=== PATIENT | female | born 1980 | race Caucasian/White ===

== ENCOUNTER 2019-03-02 18:09 | Emergency (ER) | payer OTHER ==
[~2019-03-02] VITALS: Ht 162.6 cm; Wt 69.9 kg
[2019-03-02 18:10] VITALS: BP_SYST 131
[2019-03-02 19:47] LABS: BASOPHILS # (AUTO) 0.1 K/uL (0.0-0.2); BASOPHILS % (AUTO) 0.4 % (0.0-2.0); EOSINOPHILS % (AUTO) 0.1 % (0.0-4.0); HEMATOCRIT 44.2 % (36-48); HEMOGLOBIN 14.7 g/dL (12.0-16.0); LYMPHOCYTES % (AUTO) 15.4 % (20.5-51.5); MEAN CORPUSCULAR HEMOGLOBIN 30 pg (27-31); MEAN CORPUSCULAR HGB CONC 33 % (32-36); MEAN CORPUSCULAR VOLUME 89 fL (79.0-98.0); MONOCYTES # (AUTO) 0.5 K/uL (0.0-1.0); MONOCYTES % (AUTO) 3.8 % (1.7-9.3); NEUTROPHILS # (AUTO) 10.5 K/uL (1.8-7.7); NEUTROPHILS % (AUTO) 80.3 % (40.0-70.0); PLATELET COUNT (AUTO) 293 K/uL (130-430); RED BLOOD CELL COUNT(AUTO) 4.97 MIL/uL (4.2-6.2); WHITE BLOOD COUNT (AUTO) 13.1 K/uL (4.8-10.8)
[2019-03-02 20:17] LABS: BILIRUBIN,URINE 1+ (NEGATIVE); BLOOD, URINE 3+ (NEGATIVE); CLARITY/URINE SL CLOUDY (CLEAR); COLOR,URINE RED (YELLOW); GLUCOSE,URINE NEGATIVE (NEGATIVE); KETONES,URINE 1+ (NEGATIVE); LEUKOCYTE ESTERASE ,URINE NEGATIVE (NEGATIVE); PROTEIN URINE 2+ (NEGATIVE)
[2019-03-02 20:20] LABS: NITRITE, URINE POSITIVE (NEGATIVE)
[2019-03-02 20:31] LABS: BACTERIA,URINE RARE /HPF (None Seen); RBC,URINE >100 /HPF (0-3); WBC,URINE 0-3 /HPF (0-3)
[2019-03-02] MEDS ORDERED: CEPHALEXIN 500 MG CAPSULE PO ONE (21:00)
[2019-03-02 21:10] VITALS: BP_SYST 131
== END 2019-03-02 21:10 | disposition home or self-care (01) ==
LOC: SED 18:09
DX: O20.0 Threatened abortion (principal); O23.41 Unspecified infection of urinary tract in pregnancy, first trimester; R03.0 Elevated blood-pressure reading, without diagnosis of hypertension; Z3A.01 Less than 8 weeks gestation of pregnancy
CPT/HCPCS: 36415; 76801; 76817; 81000-TC; 81025; 84702-TC; 85025; 86900; 86901; 87086; 99284

== ENCOUNTER 2021-01-29 09:15 | Outpatient (CLI) | payer OTHER | END 2021-01-29 19:37 | disposition home or self-care (01) | LOC: SRD 09:15 | PROVIDERS: ATTEND Specialist | DX: N96 Recurrent pregnancy loss (principal); E72.12 Methylenetetrahydrofolate reductase deficiency | CPT/HCPCS: 58340; 74740; C1751; Q9967 ==